=== PATIENT | female | born 1980 | race Caucasian/White ===

== ENCOUNTER → 2019-11-23 | Outpatient (CLI) | payer MEDICAID, SELFPAY | END | disposition home or self-care (01) | LOC: LABSPEC 11-26 07:08 | PROVIDERS: PCP Family Medicine; Referring Provider Family Medicine; Visit Provider Family Medicine | DX: B34.9 Viral infection, unspecified (principal) | CPT/HCPCS: 87635; 94799; U0003 ==

== ENCOUNTER 2021-03-14 09:00 | Outpatient (RCR) | payer MEDICAID, SELFPAY ==
--- NOTE | 2020-12-02 10:27 | HP.PTEVAL_ITS ---
Patient's Visit Information LINDA POWER is a 39 year old F referred to Physical Therapy by Dr. Zoraida Ridley MD with a diagnosis of NECK AND BACK PAIN. Date of Evaluation: 12/02/20 Physical Therapist: Tiago Manuel PT, Cert MDT, OCS - Visit Plan Frequency: 2x /Week Duration: 4 Weeks Plan: PT INTEREVTIONS AQUATIC THERAPY CERVICAL /LUMBAR ROM,POSTURAL EX'S ,DLS LE FLEXABLITY AND STRENGTHENING - Subjective This 39 y/o male presents to physical therapy with neck and back. Patient has had neck and back pain 10 years ago thrown from horse . Patient recently 2019 noticed increase stiffness in neck and back . Patient has h/o migraines . Patient pain located cervical spine and occasional in arms and hands. Aggravating factors ,driving, sitting ,bending and turn neck, housework tasks. Alleviating factors rest. Denies nausea/dizziness. Back pain located symmetrical lumbar and radiates to hip and also occasional paranesthesia in legs. . Aggravating bending ,lifting, walking sitting affects housework tasks and ADLS. Alleviating factors rest ,gabapentin. Coughing/sneezing -. Bowel/bladder-. Patient pain affects sleeping but has no abnormal night pain. Patient has had h/o trauma and PT for spine at [facility]. Patient seen DR Georges and did epidural injection. Patient has had x-rays showed osteophytes. Patient pain affects QOL and function and job demands. PMH: right shoulder arthroscopic. SOCAIL: . VOCATION: [employer] - Pain Bilateral Neck Pain Intensity (Out of 10): 4 Pain Intensity Range: 10 Bilateral Back Pain Intensity (Out of 10): 4 Pain Intensity Range: 10 - Objective POSTURE: mild forward posture. PALAPTION: tender UT/levator ,lumbar spinals. NEURO: c/o paresthesia in hands ,reflexes C5-6-7 2/3,L3-4,L4-L5 ,L5 -S1 2/3. AROM: BUE AROM WFL. MMT: GROSSLY 4-/5 SHOULDER /BICEPS/TRICEPS/WRIST. CERVICAL ROM: flexion min loss, lateral flexion ,rotation mod loss, extension WFL, retraction WFL. LUMBAR ROM: flexion loss pain, extension min loss decrease pain. SYMMTRIES: align. MMT: quads/hams 4/5,hip flexion 4-/5 ,abduction 4-/5 ,ankle 4/5. FLEXABLITTY: hams min/mod tight with pain - Special Tests C/S Radiculapathy - Left Upper limb tension test: Negative C/S Radiculapathy - Right Upper limb tension test: Negative C/S Radiculapathy - Left [place]: Positive C/S Radiculapathy - Right [place]: Positive C/S Radiculapathy - Left Cervical distraction: Positive C/S Radiculapathy - Right Cervical distraction: Positive C/S Radiculapathy - Left Relief test: Negative C/S Radiculapathy - Right Relief test: Negative Sharp Geovanny: Negative Vertebral Artery Test: Negative Alar Ligament Test: Negative Cervical Sitting: Protrusion - Mechanical Response: No effect Cervical Sitting: Protrusion - Symptoms During Testing: Increases Cervical Sitting: Protrusion - Symptoms After Testing: No worse Cervical Sitting: Retraction - Mechanical Response: No effect Cervical Sitting: Retraction - Symptoms During Testing: Centralizing Cervical Sitting: Retraction - Symptoms After Testing: No better Cervical Sitting: Retraction-Extension - Mechanical Response: No effect Cerv Sitting: Retraction-Extension - Symptoms During Testing: Increases Cerv Sitting: Retraction-Extension - Symptoms After Testing: No worse Cervical Sitting: Sidebend Right - Mechanical Response: No effect Cervical Sitting: Sidebend Right - Symptoms During Testing: No effect Cervical Sitting: Sidebend Right - Symptoms After Testing: No effect Cervical Sitting: Sidebend Left - Mechanical Response: No effect Cervical Sitting: Sidebend Left - Symptoms During Testing: No effect Cervical Sitting: Sidebend Left - Symptoms After Testing: No effect Cervical Sitting: Rotation Right - Mechanical Response: No effect Cervical Sitting: Rotation Right - Symptoms During Testing: No effect Cervical Sitting: Rotation Right - Symptoms After Testing: No effect Cervical Sitting: Rotation Left - Mechanical Response: No effect Cervical Sitting: Rotation Left - Symptoms During Testing: No effect Cervical Sitting: Rotation Left - Symptoms After Testing: No effect Cervical Sitting: Flexion - Mechanical Response: No effect Cervical Sitting: Flexion - Symptoms During Testing: Increases Cervical Sitting: Flexion - Symptoms After Testing: No worse L/S Slump test left side: Negative L/S Slump test right side: Negative L/S Left Straight Leg Raise: Positive L/S Right Straight Leg Raise: Positive Lumbar Standing: Flexion - Mechanical Response: No effect Lumbar Standing: Flexion - Symptoms During Testing: Increases Lumbar Standing: Extension - Mechanical Response: No effect Lumbar Standing: Extension - Symptoms During Testing: Decreases Lumbar Standing: Extension - Symptoms After Testing: Better Lumbar Standing: Right Side Glides - Mechanical Response: No effect Lumbar Standing: Right Side [place] - Symptoms During Testing: No effect Lumbar Standing: Right Side [place] - Symptoms After Testing: No effect Lumbar Standing: Left Side [place] - Mechanical Response: No effect Lumbar Standing: Left Side [place] - Symptoms During Testing: No effect Lumbar Standing: Left Side [place] - Symptoms After Testing: No effect Lumbar Lying: Flexion - Mechanical Response: No effect Lumbar Lying: Flexion - Symptoms During Testing: Increases Lumbar Lying: Flexion - Symptoms After Testing: No worse Lumbar Lying: Extension - Mechanical Response: No effect Lumbar Lying: Extension - Symptoms During Testing: Decreases Lumbar Lying: Extension - Symptoms After Testing: Better - Balance/Special Test Scores Oswestry Low Back Score: 23 - Goals Goal 1:: I with Aquatic Therapy and HEP to manage symptoms Goal Time Frame: 4-6 Weeks Goal 2:: Patient to improve posture /body mechanics to improve function Goal Time Frame: 4-6 Weeks Goal 3:: Patient to decrease lumbar and back pain by 50% to improve job demands and housework tasks Goal Time Frame: 4-6 Weeks Goal 4:: Patient to improve lumbar/cervical ROM for function of recovery for ability to lift with min pain Goal Time Frame: 4-6 Weeks Goal 5:: Patient improve back owestry score by 5 points to improve QOL Goal Time Frame: 4-6 Weeks Goal 6:: Patient able to do job demands and housework tasks 2 hours with less pain 50% Goal Time Frame: 4-6 Weeks - Rehabilitation Potential Physical Therapy Diagnosis: Patient has cervical and lumbar pain with possible derangement worse with flexion ,motion testing with extension decreases symptoms , position increase symptoms affects ADL's and job demands thus benefit from skilled PT Rehabilitation Potential: Good - Anticipated Interventions Patient/Client Instruction: Educate patient on: Condition, Plan of Care For the Purpose of:: To decrease pain, To increase ROM, To improve muscle performance and motor function, To improve ability to perform ADL's, To increase tolerance to activity/condition/position, To improve performance and independence with ADL's, To improve ability of physical actions for home/community/work/leisure, To improve health of tissue, To decrease soft tissue restriction, To increase flexibility/ROM, To improve health and function Therapeutic Exercise to Include: Strength training, Body mechanics, Postural training, Flexibilty training, In an aquatic setting, Active ROM, Dynamic Lumbar Stabilization For the Purpose of:: To decrease pain, To increase ROM, To improve muscle performance and motor function, To improve ability to perform ADL's, To increase tolerance to activity/condition/position, To improve performance and independence with ADL's, To improve ability of physical actions for home/community/work/leisure, To improve health of tissue, To decrease soft tissue restriction, To reduce risk of recurrence TENS: Yes IF ES: Yes Cryotherapy (ice pack, ice massage): Yes Thermo therapy (hot pack): Yes Ultrasound (thermal/non thermal): Yes For the Purpose of:: To decrease pain, To increase ROM, To improve muscle performance and motor function, To improve ability to perform ADL's, To increase tolerance to activity/condition/position, To improve ability of physical actions for home/community/work/leisure, To improve health of tissue, To decrease soft tissue restriction Thank you for the opportunity to evaluate your patient. For Medicare and Medicare HMO plans, please review the plan of care and approve it. It will need to be FAXED BACK to us at [phone] for Medicare purposes. For Medicare only, by signing this I certify the plan of care. Please let me know if there are questions or concerns regarding this plan of care. Physician Signature: Date:
--- NOTE | 2021-03-14 10:23 | HP.PTDCSUM ---
It has been my pleasure to treat LNIDA POWER referred by Dr. Zoraida Ridley MD, with the diagnosis of NECK AND BACK PAIN for a total of 11 visit(s). Discharge Date: 03/14/21 Please see the following information for a summary of their discharge status. Subjective: Back is doing better..neck is not much better Bilateral Neck Pain Intensity (Out of 10): 2 Bilateral Back Pain Intensity (Out of 10): 5 % Improvement: 25 Objective/Function: POSTURE: mild forward posture. NEURO: c/o paresthesia/tingling hands, reflexes C5-6-7 2/3, L3-4,L4-5,L5-S1 1/3. MMT: quads/hams 3+/5,hip flexion 3+/5/5,ankle 4-/5. LUMBAR ROM: flexion mod loss, extension mod. CERVICAL ROM: flexion min loss ,extension mod loss, lateral flexion /rotation. BUE: 4-/5 Goal 1:: I with Aquatic Therapy and HEP to manage symptoms Goal Progress: Goal Met Goal 2:: Patient to improve posture /body mechanics to improve function Goal Progress: Goal Met Goal 3:: Patient to decrease lumbar and back pain by 50% to improve job demands and housework tasks Goal Progress: Progressing Goal 4:: Patient to improve lumbar/cervical ROM for function of recovery for ability to lift with min pain Goal Progress: Progressing Goal 5:: Patient improve back owestry score by 5 points to improve QOL Goal Progress: Progressing Goal 6:: Patient able to do job demands and housework tasks 2 hours with less pain 50% Goal Progress: Progressing Plan: D/C Discharge Comments: HEP If there are questions or concerns regarding this patient's physical therapy, please feel free to call me at [phone]. Thank you for the referral of this patient. Sincerely, Tiago Manuel, PT, Cert MDT, OCS Balance/Gait/Functional tests - Balance/Special Test Scores Oswestry Low Back Score: 15
== END 2021-03-14 19:00 | disposition home or self-care (01) ==
LOC: PT 09:00
PROVIDERS: PCP Family Medicine; Referring Provider Anesthesiology Pain Medicine; Visit Provider Anesthesiology Pain Medicine
DX: M54.2 Cervicalgia (principal); M54.9 Dorsalgia, unspecified
CPT/HCPCS: 97113; 97162; 97530

== ENCOUNTER 2021-04-18 10:15 | Outpatient (CLI) | payer MEDICAID, SELFPAY ==
--- NOTE | 2021-04-18 10:45 | MRI_ITS ---
STUDY: MRI CERVICAL SPINE WITHOUT CONTRAST REASON FOR EXAM: Female, 40 years old. Neck pain, arm numbness TECHNIQUE: Standardized fat and water weighted pulse sequences were obtained in the sagittal and axial planes. COMPARISON: None FINDINGS: Normal foramen magnum and brainstem-cervical cord junction. Normal craniovertebral junction. Normal anterior atlantoaxial articulation. Normal odontoid process. There is straightening of the normal cervical lordosis. Normal vertebral bodies and posterior osseous elements. C2-3: Normal endplates. Normal disc height, signal and morphology. Normal central canal and intervertebral neural foramina. C3-4: Normal endplates. Normal disc height, signal and morphology. Normal central canal and intervertebral neural foramina. C4-5: Normal endplates. Normal disc height, signal and morphology. Normal central canal and intervertebral neural foramina. C5-6: Normal endplates. Normal disc height, signal and morphology. Normal central canal and intervertebral neural foramina. C6-7: Normal endplates. Normal disc height, signal and morphology. Normal central canal and intervertebral neural foramina. C7-T1: Normal endplates. Normal disc height, signal and morphology. Normal central canal and intervertebral neural foramina. Normal cervical cord. Normal visualized soft tissue structures. MRI/Spine Cervical (Routine) IMPRESSION: Straightening of the normal lordotic curvature possibly from muscular spasm. No spinal stenosis or neural foraminal stenosis. Electronically Signed: Pavan Redman MD at 12:23 [facility] ,
== END 2021-04-18 23:59 | disposition short-term general hospital (02) ==
LOC: MRI 10:17
PROVIDERS: PCP Family Medicine; Referring Provider Anesthesiology Pain Medicine; Visit Provider Anesthesiology Pain Medicine
DX: M54.2 Cervicalgia (principal); M79.603 Pain in arm, unspecified
CPT/HCPCS: 72141

== ENCOUNTER 2021-05-19 06:29 | Outpatient (CLI) | payer MEDICAID, SELFPAY ==
--- NOTE | 2021-05-19 06:40 | MRI_ITS ---
STUDY: MRI LUMBAR SPINE WITHOUT CONTRAST REASON FOR EXAM: Female, 40 years old. Lumbar radiculopathy. TECHNIQUE: Standardized fat and water weighted pulse sequences were obtained in the sagittal and axial planes. COMPARISON: CT abdomen and pelvis with contrast 05/13/2015. FINDINGS: T11-T12 and T12-L1: (Sagittal only). Normal endplates. Normal disc height, hydration and morphology. No ventral extradural defect. Normal central canal and bilateral intervertebral neural foramina. Normal lumbar lordosis. There is no substantial scoliosis. Normal conus medullaris that terminates at the lower T12 vertebral body level. L1-2: Normal endplates. Normal disc height, hydration and morphology. Normal bilateral facet joints. Normal central canal and bilateral lateral recesses. Normal bilateral intervertebral neural foramina. L2-3: Normal endplates. Normal disc height, hydration and morphology. Normal bilateral facet joints. Normal central canal and bilateral lateral recesses. Normal bilateral intervertebral neural foramina. L3-4: Normal endplates. Normal disc height, hydration and morphology. Normal bilateral facet joints. Normal central canal and bilateral lateral recesses. Normal bilateral intervertebral neural foramina. L4-5: Normal endplates. Normal disc height, hydration and morphology. Normal bilateral facet joints. Normal central canal and bilateral lateral recesses. Normal bilateral intervertebral neural foramina. L5-S1: Normal endplates. Normal hypoplastic disc. Normal disc hydration and morphology. Normal hypoplastic facet joints. Normal central canal and bilateral lateral recesses. Normal bilateral intervertebral neural foramina. Normal visualized sacral ala. Normal visualized paraspinous soft tissue structures. MRI/Spine Lumbar (Routine) IMPRESSION: 1. No MRI evidence of lumbar extruded disc fragment, spinal stenosis or nerve root displacement. 2. No interval change when compared to CT abdomen and pelvis of 05/13/2015. Electronically Signed: Edwin Quarles MD at 10:00 EST ,
== END 2021-05-19 23:59 | disposition home or self-care (01) ==
LOC: MRI 06:30
PROVIDERS: PCP Family Medicine; Referring Provider Anesthesiology Pain Medicine; Visit Provider Anesthesiology Pain Medicine
DX: M54.16 Radiculopathy, lumbar region (principal)
CPT/HCPCS: 72148

== ENCOUNTER 2023-11-04 11:25 | Emergency (ER) | payer MEDICAID, SELFPAY ==
[2023-11-04 11:25] VITALS: BP 114/76; PULSE 77; RESP 19; TEMP 36.4; O2SAT 100
== END 2023-11-04 15:06 | disposition left against medical advice (07) ==
LOC: ED 15:11
PROVIDERS: PCP Family Medicine
DX: Z00.00 Encounter for general adult medical examination without abnormal findings (principal)